=== PATIENT | male | born 1970 | race Caucasian/White ===

== ENCOUNTER → 2023-05-19 09:39 | Outpatient (REF) | payer OTHER, SELFPAY | LOC: HWRAD 09:39 | PROVIDERS: ATTENDING PHYSICIAN Specialist; FAMILY PHYSICIAN Family Medicine | DX: N20.0 Calculus of kidney (principal); N20.1 Calculus of ureter | CPT/HCPCS: 76770 ==

== ENCOUNTER → 2023-09-01 09:00 | Outpatient (REF) | payer OTHER, SELFPAY | LOC: HWRAD 09:00 | PROVIDERS: ATTENDING PHYSICIAN Specialist; FAMILY PHYSICIAN Family Medicine | DX: N20.0 Calculus of kidney (principal) | CPT/HCPCS: 76770 ==

== ENCOUNTER 2023-09-20 04:53 | Emergency (ER) | payer OTHER, SELFPAY ==
[2023-09-20 04:58] VITALS: BP 182/120
[2023-09-20 05:23] VITALS: BMI 26.5
[2023-09-20] MEDS: TORADOL 15 MG IV (05:28)
[2023-09-20 05:35] LABS: % Basophils 1.5 % (0-2); % Eosinophils 4.8 % (0-6); % Immature Granulocytes 0.3 % (0-0.5); % Lymphocytes 23.9 % (20.5-51.1); % Monocytes 9.3 % (1.7-9.3); % Neutrophils 60.2 % (42.2-75.2); Absolute Basophils 0.1 10^3/uL (0-0.2); Absolute Eosinophils 0.4 10^3/uL (0-0.7); Absolute Lymphocytes 1.8 10^3/uL (1.2-3.4); Absolute Monocytes 0.7 10^3/uL (0.1-0.6); Absolute Neutrophils 4.4 10^3/uL (1.4-6.5); Hematocrit 40.7 % (39.0-52.0); Hemoglobin 14.3 g/dL (13.0-18.0); Mean Corp Hgb Conc. 35.1 g/dL (33.0-37.0); Mean Corpuscular Hgb 28.7 pg (27.0-31.0); Mean Corpuscular Volume 81.7 fL (80.0-94.0); Nucleated Red Blood Cells % 0 % (-); Platelet Count 277 10^3/uL (130-400); Red Blood Cell Count 4.98 10^6/uL (4.70-6.10); Red Cell Dist. Width 12.9 % (11.5-14.5); White Blood Cell Count 7.3 10^3/uL (4.8-10.8)
[2023-09-20 05:46] LABS: APTT 28.4 Sec (23.4-35.0); INR 0.98; PT 12.8 Sec (11.4-14.6)
[2023-09-20 05:56] LABS: ALT (SGPT) 33 U/L (0-50); AST (SGOT) 26 U/L (17-59); Albumin 4.8 g/dl (3.5-5.0); Alkaline Phosphatase 54 U/L (38-126); Blood Urea Nitrogen 26 mg/dl (9-20); Calcium 9.8 mg/dl (8.4-10.2); Carbon Dioxide 22 mmol/L (22-30); Chloride 109 mmol/L (98-107); Estimated Creatinine Clearance 76 ml/min; Glucose 139 mg/dl (70-99); Lipase 218 U/L (23-300); Potassium 4.6 mmol/L (3.5-5.1); Sodium 140 mmol/L (135-145); Total Bilirubin 0.4 mg/dl (0.2-1.3); Total Protein 7.2 g/dl (6.3-8.2); eGFR > 60.00
--- NOTE | 2023-09-20 06:16 | ED.GENMED ---
History of Present Illness
General
Chief Complaint: Flank Pain
Source: patient
Exam Limitations: none
Time Seen by Provider: 09/20/23 06:04
Nursing documentation reviewed up to this point in time: agreed with
History of Present Illness
History of Present Illness:
The patient is a pleasant 53-year-old man with a past medical history of recurrent kidney stones followed by Dr. Brice. Patient has a known 8 mm left proximal ureteral stone as well as two 4 mm stones within the left kidney. These findings were
found on an ultrasound done last month. Patient reports that he was not experiencing pain until 2:30 AM this morning when he woke up with severe left flank pain and nausea. Patient denies vomiting and fever. Patient reports he is due to have
soundwave therapy done on October 16 to break the stones up, however, he is not sure he could wait due to pain.
Prior to my evaluation, patient given Toradol and states that pain is much more tolerable at this time.
Past History
Past History
ED Past Medical History: Other (renal calculi)
ED Past Surgical History: Orthopedic
Social History
Tobacco: Non-smoker
Alcohol: Other
Drug: None
Personal:
Living: with family
Employment: Employed
Family History
Family History: Other
Review of Systems
Review of Systems
Allergies reviewed?: Yes
All Other Systems: ROS reviewed and negative except as documented in HPI and ROS
Constitutional: Reports no symptoms
EENT: Reports no symptoms
Respiratory: Reports no symptoms
Cardiac: Reports no symptoms
ABD/GI: Reports nausea
: Reports flank pain
Musculoskeletal: Reports no symptoms
Skin: Reports no symptoms
Neurological: Reports no symptoms
Endocrine: Reports no symptoms
Hematologic/Lymphatic: Reports no symptoms
Psychiatric: Reports no symptoms
Phy Exam
Physical Exam
Physical Exam:
Physical Exam
General: no apparent distress, not acutely ill
Neck: supple. no meningeal signs. normal psoterior pharynx
Heart: s1/s2 regular rate and rhythm, no murmur. equal radial pulses.
Lungs: no acute respiratory distress. clear bilaterally
Abdomen: normal bowel sounds. not tender. no CVAT
Neuro: alert and oriented. no focal neurological deficits
Skin: no rash
Psychiatric: well kept. interactive and cooperative
Extremities: no edema. no calf tenderness. negative homans. good distal pulses
Course
Orders/Labs/Results
Orders:
Orders
09/20/23 05:17
Ketorolac [Toradol] 15 mg IV NOW STA
09/20/23 05:26
Complete Blood Count/With Diff Urgent
Comprehensive Metabolic Panel Urgent
Lipase Urgent
PTT Urgent
Prothrombin Time Urgent
09/20/23 06:16
US Kidneys [US Renal Only W/O Bladder] Urgent
Comment:
Reason For Exam: Left flank pain
09/20/23 06:23
0.9% Sodium Chloride 1000 ml [Nss] 1,000 ml IV BOLUS
09/20/23 07:06
Urinalysis Reflex To Culture Urgent
Date Specimen was Collected: 09/20/23
Time Specimen was Collected: 07:04
Urine Microscopic Reflex Cult Urgent
09/20/23 07:35
Abdominal Series [CR Obstruct Series W/pa Chest] Urgent
Comment:
Reason For Exam: Left kidney stone movement
09/20/23 08:12
Morphine Sulfate 4 mg IV NOW STA
09/20/23 09:24
Oxycodone/Acetaminophen [Percocet 5/325] 1 tablet PO NOW STA
09/20/23 10:08
HYDROmorphone [Dilaudid] 0.5 mg IV NOW STA
09/20/23 12:00
Ketorolac [Toradol] 30 mg IV NOW ONE
Abnormal Lab Results
09/20/23 09/20/23
05:26 07:06
Absolute Monos (auto) 0.7 H 10^3/uL
(0.1-0.6)
Chloride 109 H mmol/L
(98-107)
BUN 26 H mg/dl
(9-20)
Glucose 139 H mg/dl
(70-99)
Ur Occult Blood Reflex 4+ A
(Negative)
Urine RBC 7-10 A /HPF
(0-2)
09/20/23 05:26
09/20/23 05:26
Vital Signs
Initial and Last Documented VS:
Initial Vital Signs
Temp Pulse Resp BP
98.5 F 78 18 182/120
09/20/23 04:58 09/20/23 04:58 09/20/23 04:58 09/20/23 04:58
Last Documented Vital Signs
Temp Pulse Resp BP Pulse Ox
98.2 F 73 18 148/106 94
09/20/23 10:27 09/20/23 12:00 09/20/23 12:00 09/20/23 12:00 09/20/23 12:00
MDM/Problems Addressed
Differential Diagnosis Includes:
Left renal colic with mild left hydronephrosis, left renal colic with severe hydronephrosis, infected left kidney stone
MDM/Problems Addressed:
Patient presents with acute left flank pain
Chronic conditions affecting care:
Patient has a history of chronic kidney stones which can explain his acute pain in his left flank area
Acute Exacerbation and/or Progression of Chronic Illness:
Patient is acutely hypertensive, likely due to severe pain.
Patient's acute left flank pain represents progression of his chronic kidney stones
*Radiology
Radiology exam reviewed: radiology read reviewed
*Pulse Oximetry
Patient hypoxic: no
*EKG
Interpreted by ED Provider?: NA
*Life Science Taxonomist Interpretation
Rate: normal
Interpretation: normal
Rhythm: sinus
*Critical Care Note
Total Time (30-74mins, 75-104mins- exclusive of procedures): Not Applicable
Data Reviewed
Review of Other/Old Records Reveals: Radiology Studies (Renal ultrasound reviewed from August 2023 which shows an 8 mm stone in proximal ureter as well as 4 mm stones in the left kidney)
Source: patient and spouse
Patient Management
Social determinants of health affecting care: Living situation and Poor social support
Discussion with other providers: Other (I did speak to Dr. Blair who agreed that doing an x-ray was adequate and a CAT scan was not necessary. Dr. Blair unfortunately cannot move patient's intevention)
Update Note
Update Note:
2:00 PM patient resting comfortably for hours in the emergency department without any significant pain or nausea. There is no sign of UTI or sepsis. Patient would rather go home and monitor his pain.
ED Attending Note
-
Portions of this chart may have been created with voice recognition software.� Occasional wrong word or��sound alike� substitutions may have occurred due to the inherent limitations of voice recognition software.
Discharge Plan
Departure
Patient Disposition: Home (Routine Discharge)
Date of Disposition: 09/20/23
Time of Disposition: 14:06
Patient with high blood pressure during this ER visit?: Yes
Condition: Good
Covid-19: Not Applicable
Discharge Problem:
Renal colic on left side
Instructions: Kidney Stones (DC), Renal Colic (DC), Narcotic Pain Medication
Prescriptions:
New
oxycodone 5 mg tablet
5 - 10 mg PO TID PRN (Reason: Pain) Qty: 10 0RF
ketorolac 10 mg tablet
10 mg PO Q8H PRN (Reason: Pain) Qty: 8 0RF
Rx Instructions:
maximum total duration of 5 days from all oral, intranasal, or parenteral formulations
Referrals:
Gaurav Duque, DO [Family Provider] -
Activity Restrictions/Additional Instructions:
Your next dose of Toradol is at 8 PM tonight. You can take the Toradol every 8 hours as needed for pain. Please do not combine it with any other NSAIDs such as ibuprofen, Aleve, Motrin, aspirin, or Advil. If the pain becomes severe, you can take
up to 2 oxycodones every 6 hours. Please call and follow-up with Dr. Brice this week if you are having ongoing pain. Please return to the emergency department if the pain becomes intolerable, you develop vomiting, or fever.
Interventions
Interventions:
*Risk Screen - Suicide Last Done: 09/20/23 04:58
*General Assessment Last Done: 09/20/23 04:58
*Neglect/Abuse Screening Last Done: 09/20/23 04:58
ED- Fall Risk Assessment Last Done: 09/20/23 04:58
*ED COVID-19 Vaccine History Last Done: 09/20/23 04:58
XN-Igyqma-Ujyomspzjr Assessment Last Done: 09/20/23 05:30
ED-Male Genitourinary Assessment Last Done: 09/20/23 05:30
Discharge Date and Time
Print Language: POLISH
[2023-09-20 06:20] VITALS: BP 131/83
[2023-09-20] MEDS: NSS 1000 IV (07:03)
[2023-09-20 07:31] LABS: Urine Albumin Negative (Neg - Trace); Urine Bilirubin Negative (Negative); Urine Character Clear (Clear); Urine Color Yellow; Urine Glucose Negative (Negative); Urine Ketone Negative (Negative); Urine Leukocyte Negative (Negative); Urine Nitrite Negative (Negative); Urine Occult Blood 4+ (Negative); Urine Urobilinogen Negative (Neg - 1+)
[2023-09-20 08:00] VITALS: BP 126/75
[2023-09-20] MEDS: MORPHINE SULFATE 4 MG IV (08:16)
[2023-09-20] MEDS: PERCOCET 5/325 1 TABLET PO (09:31)
[2023-09-20 09:34] LABS: Urine White Cell None Seen /HPF (0-5)
[2023-09-20] MEDS: DILAUDID 0.5 MG IV (10:12)
[2023-09-20 10:27] VITALS: BP 144/98
[2023-09-20] MEDS: TORADOL 30 MG IV (11:58)
[2023-09-20 12:00] VITALS: BP 148/106
[2023-09-20 14:00] VITALS: BP 140/92
== END 2023-09-20 16:26 | disposition home or self-care (01) ==
LOC: EMR 04:53
PROVIDERS: Student in an Organized Health Care Education/Training Program; EMERGENCY PHYSICIAN Emergency Medicine; FAMILY PHYSICIAN Family Medicine
DX: N20.2 Calculus of kidney with calculus of ureter (principal); R11.0 Nausea; Z87.442 Personal history of urinary calculi
CPT/HCPCS: 99284; 96374; 96375 ×2; 96361; 96376; 74022; 76775; 80053; 81003; 81015; 83690; 85025; 85610; 85730

== ENCOUNTER → 2023-09-22 14:44 | Outpatient (REF) | payer OTHER, SELFPAY | LOC: CLAB 14:44 | PROVIDERS: ATTENDING PHYSICIAN Specialist | DX: N20.0 Calculus of kidney (principal) | CPT/HCPCS: 82365 ==

== ENCOUNTER → 2023-10-14 09:54 | Outpatient (REF) | payer OTHER, SELFPAY | LOC: HWRAD 09:54 | PROVIDERS: ATTENDING PHYSICIAN Specialist; FAMILY PHYSICIAN Family Medicine | DX: N20.0 Calculus of kidney (principal) | CPT/HCPCS: 76770 ==